=== PATIENT | male | born 1950 | race Caucasian/White ===

== ENCOUNTER 2018-01-23 19:06 | Inpatient (IN) | payer OTHER ==
[2018-01-23 20:13] VITALS: BMI 20.1
--- NOTE | 2018-01-23 23:45 | HP ---
COWS - Scale Resting Pulse: 0= ND 80 or Below Sweatin=Flushed/Facial Moisture Restless Observation: 1= Difficult to Sit Still Pupil Size: 0= Normal to Room Light Bone or Joint Aches: 2= Severe Diffuse Aches Runny Nose/ Eye Tearin= Runny Nose/Eyes GI Upset > 30mins: 2= Nausea/Diarrhea Tremor Observation: 4= Gross Tremor/Twitching Yawning Observation: 0= None Anxiety or Irritability: 2=Irritable/Anxious Goose Flesh Skin: 0=Smooth Skin COWS Score: 15 CIWA Score Nausea/Vomitin Muscle Tremors: 3 Anxiety: 3 Agitation: 3 Paroxysmal Sweats: 2 Orientation: 0-Oriented Tacttile Disturbances: 0-None Auditory Disturbances: 0-None Visual Disturbances: 0-None Headache: 4-Moderately Severe CIWA-Ar Total Score: 17 - Admission Criteria [facility] Guidelines: Admission for Medically Managed Detox: Requires at least one of the followin. CIWA greater than 12 2. Seizures within the past 24 hours 3. Delirium tremens within the past 24 hours 4. Hallucinations within the past 24 hours 5. Acute intervention needed for co occurring medical disorder 6. Acute intervention needed for co occurring psychiatric disorder 7. Severe withdrawal that cannot be handled at a lower level of care (continued vomiting, continued diarrhea, abnormal vital signs) requiring intravenous medication and/or fluids 8. Admission [facility] Chief Complaint: Alcohol withdrawal symptoms Allergies/Adverse Reactions: Allergies Allergy/AdvReac Type Severity Reaction Status Date / Time No Known Allergies Allergy Verified 01/23/18 22:24 History of Present Illness: 67 years old male with 50 years of alcohol and heroin dependence is seeking admission to detox. Patient reports insignificant period of sobriety. He reports history of anxiety and denies suicidal ideation at this time. Exam Limitations: No Limitations - Ebola screening Have you traveled outside of the country in the last 21 days: No (N) Have you had contact with anyone from an Ebola affected area: No Have you been sick,other than usual withdrawal symptoms: No Do you have a fever: No - Review of Systems Constitutional: Chills, Malaise, Night Sweats, Weakness EENT: reports: Nose Congestion, Difficulty Swallowing Respiratory: reports: No Symptoms reported Cardiac: reports: No Symptoms Reported GI: reports: Diarrhea, Poor Appetite, Poor Fluid Intake, Vomiting, Abdominal cramping : reports: No Symptoms Reported Musculoskeletal: reports: Muscle Pain, Muscle Weakness Integumentary: reports: Dryness, Flushing Neuro: reports: Headache, Tremors Endocrine: reports: No Symptoms Reported Hematology: reports: No Symptoms Reported Psychiatric: reports: No Sypmtoms Reported, Anxious Other Systems: Reviewed and Negative Patient History - Patient Medical History Hx Anemia: No Hx Asthma: No Hx Chronic Obstructive Pulmonary Disease (COPD): No Hx Cancer: No Hx Cardiac Disorders: No Hx Congestive Heart Failure: No Hx Hypertension: No Hx Hypercholesterolemia: No Hx Pacemaker: No HX Cerebrovascular Accident: No Hx Seizures: No Hx Dementia: No Hx Diabetes: No Hx Gastrointestinal Disorders: No Hx Liver Disease: No Hx Genitourinary Disorders: No Hx Sexually Transmitted Disorders: No Hx Renal Disease (ESRD): No Hx Thyroid Disease: No Hx Human Immunodeficiency Virus (HIV): No (Negative 2016) Hx Hepatitis C: No Hx Depression: No Hx Suicide Attempt: No (Denies suicidal ideation at this time) Hx Bipolar Disorder: No Hx Schizophrenia: No Other Medical History: Anxiety - Xanax - Patient Surgical History Past Surgical History: Yes Hx Orthopedic Surgery: Yes (HIP REPLACEMENT 1994) - PPD History Previous Implant?: Yes Documented Results: Negative w/o proof Implanted On Prior [facility] Admission?: No PPD to be Administered?: Yes - Reproductive History Patient is a Female of Child Bearing Age (11 -55 yrs old): No (MALE) - Smoking Cessation Smoking history: Never smoked Hx Chewing Tobacco Use: No Initiated information on smoking cessation: No - Substance & Tx. History Hx Alcohol Use: Yes Hx Substance Use: Yes Substance Use Type: Heroin, Tranquilizers Hx Substance Use Treatment: Yes - Substances Abused Alprazolam (Xanax) Route: Oral Frequency: Daily Amount used: 2 mg Age of first use: 57 Date of Last Use: 01/21/18 Heroin Route: Inhalation Frequency: Daily Amount used: 8 bags Age of first use: 17 Date of Last Use: 01/21/18 Family Disease History - Family Disease History Family History: Denies Admission Physical Exam [facility] - Vital Signs Vital Signs: Vital Signs - 24 hr 01/23/18 20:11 Temperature 97.1 F L Pulse Rate 74 Respiratory 18 Rate Blood Pressure 140/88 - Physical General Appearance: Yes: Moderate Distress, Tremorous, Irritable, Sweating, Anxious HEENTM: Yes: EOMI, Normocephalic, Normal Voice, MICHELLE Respiratory: Yes: Lungs Clear, Normal Breath Sounds, No Respiratory Distress Breast: Yes: Breast Exam Deferred Cardiology: Yes: Regular Rhythm, Regular Rate Abdominal: Yes: Normal Bowel Sounds, Soft Genitourinary: Yes: Within Normal Limits Back: Yes: Normal Inspection Musculoskeletal: Yes: Pelvis Stable Extremities: Yes: Normal Inspection 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, Alert, Normal Mood/Affect Integumentary: Yes: Warm Lymphatic: Yes: Within Normal Limits - Diagnostic (1) Anxiety Current Visit: Yes Status: Chronic (2) Opioid dependence with withdrawal Current Visit: Yes Status: Chronic (3) Sedative, hypnotic or anxiolytic dependence with withdrawal, uncomplicated Current Visit: Yes Status: Chronic Cleared for Admission [facility] - Detox or Rehab [facility] Level of Care: Medically Managed Detox Regimen/Protocol: Methadone/Valium [facility] Breath Alcohol Content Breath Alcohol Content: 0 Urine Drug Screen - Results Drug Screen Negative: No Urine Drug Screen Results: OPI-Opiates, BZO-Benzodiazepines
[2018-01-23] MEDS ORDERED: IBUPROFEN 400 MG TABLET (FP) PO PRN (23:52)
[2018-01-23] MEDS ORDERED: MAGNESIUM CITRATE 300 ML BOTTLE PO PRN (23:52)
[2018-01-23] MEDS ORDERED: MENTHOL/PHENOL 1 EACH UD MM PRN (23:52)
[2018-01-23] MEDS ORDERED: NICOTINE POLACRILEX 2 MG GUM BC PRN (23:52)
[2018-01-23] MEDS ORDERED: P-EPHED 60MG/TRIPROLIDI 2.5MG TABLET PO PRN (23:52)
[2018-01-23] MEDS ORDERED: ACETAMINOPHEN 325 MG TABLET (FP) PO PRN (23:52)
[2018-01-23] MEDS ORDERED: LOPERAMIDE HCL 2 MG CAPSULE PO PRN (23:52)
[2018-01-23] MEDS ORDERED: MAGNESIUM HYDROX 2400MG/30ML ORAL SUSPENSION 30 ML CUP PO PRN (23:52)
[2018-01-24] MEDS ORDERED: METHADONE HCL 10 MG TABLET (FOR DETOX USE ONLY) PO ONE ×3 (00:35→23:00)
[2018-01-24] MEDS ORDERED: diazePAM 5 MG TABLET PO ONE (00:35)
[2018-01-24] MEDS: diazePAM 5 MG TABLET PO SCH ×3 (05:39→22:03)
[2018-01-24] MEDS: PRENATAL VITAMINS W/ FOLIC ACID TABLET (FP) PO SCH (10:12)
[2018-01-24] MEDS: NICOTINE 14 MG/24 HOURS TOPICAL PATCH TD SCH (10:13)
[2018-01-24] MEDS: diazePAM 5 MG TABLET PO PRN (10:13)
[2018-01-24 11:11] LABS: HEMATOCRIT 40.2 % (35.4-49); HEMOGLOBIN 13.5 GM/dL (11.7-16.9); MCH 29.8 pg (25.7-33.7); MCHC 33.5 g/dl (32.0-35.9); MEAN CELL VOLUME 89.1 fl (80-96); MEAN PLT VOLUME 8.1 fl (7.5-11.1); PLATELET COUNT 206 K/MM3 (134-434); RBC 4.51 M/mm3 (4.00-5.60); RDW 15.5 % (11.9-15.9)
[2018-01-24 11:15] LABS: ALBUMIN 3.2 g/dl (3.4-5.0); ALK PHOS 58 U/L (45-117); ANION GAP 8 MMOL/L (8-16); BILIRUBIN,TOTAL 1.2 mg/dL (0.2-1); BLOOD UREA NITROGEN 12 mg/dL (7-18); CALCIUM 8.4 mg/dL (8.5-10.1); CHLORIDE 99 mmol/L (98-107); CO2 30 mmol/L (21-32); CREATININE 0.7 mg/dL (0.55-1.3); GLUCOSE,RANDOM 108 mg/dL (74-106); POTASSIUM 3.6 mmol/L (3.5-5.1); SGOT/AST 24 U/L (15-37); SGPT/ALT 25 U/L (13-61); SODIUM 138 mmol/L (136-145); TOT PROT 6.6 g/dl (6.4-8.2)
--- NOTE | 2018-01-24 13:16 | PN ---
[facility] CIWA - CIWA Score Nausea/Vomitin-Mild Nausea/No Vomiting Muscle Tremors: 4-Moderate,w/Arms Extend Anxiety: 2 Agitation: 4-Moderately Restless Paroxysmal Sweats: 1-Minimal Palms Moist Orientation: 1-Uncertain about Date Tacttile Disturbances: 0-None Auditory Disturbances: 0-None Visual Disturbances: 0-None Headache: 2-Mild CIWA-Ar Total Score: 15 [facility] COWS - Scale Resting Pulse: 0= [place] 80 or Below Sweatin= Chills/Flushing Restless Observation: 0= Sits Still Pupil Size: 0= Normal to Room Light Bone or Joint Aches: 2= Severe Diffuse Aches Runny Nose/ Eye Tearin= Nasal Congestion GI Upset > 30mins: 2= Nausea/Diarrhea Tremor Observation of Outstretched Hands: 2= Slight Tremor Visible Yawning Observation: 1= 1-2x During Session Anxiety or Irritability: 2=Irritable/Anxious Goose Flesh Skin: 0=Smooth Skin COWS Score: 11 S Progress Note (SOAP) Subjective: body ache joints pain callus on left toe tremor sweat patient wants to return to methadone program positive perspective towards aftercare Objective: 01/24/18 13:14 Vital Signs Temperature 99 F 01/24/18 09:28 Pulse Rate 84 01/24/18 09:28 Respiratory Rate 18 01/24/18 09:28 Blood Pressure 101/57 L 01/24/18 09:28 O2 Sat by Pulse Oximetry (%) Laboratory Last Values WBC 5.0 K/mm3 (4.0-10.0) 01/24/18 07:00 RBC 4.51 M/mm3 (4.00-5.60) 01/24/18 07:00 Hgb 13.5 GM/dL (11.7-16.9) 01/24/18 07:00 Hct 40.2 % (35.4-49) 01/24/18 07:00 MCV 89.1 fl (80-96) 01/24/18 07:00 MCH 29.8 pg (25.7-33.7) 01/24/18 07:00 MCHC 33.5 g/dl (32.0-35.9) 01/24/18 07:00 RDW 15.5 % (11.9-15.9) 01/24/18 07:00 Plt Count 206 K/MM3 (134-434) 01/24/18 07:00 MPV 8.1 fl (7.5-11.1) 01/24/18 07:00 Sodium 138 mmol/L (136-145) 01/24/18 07:00 Potassium 3.6 mmol/L (3.5-5.1) 01/24/18 07:00 Chloride 99 mmol/L (98-107) 01/24/18 07:00 Carbon Dioxide 30 mmol/L (21-32) 01/24/18 07:00 Anion Gap 8 MMOL/L (8-16) 01/24/18 07:00 BUN 12 mg/dL (7-18) 01/24/18 07:00 Creatinine 0.7 mg/dL (0.55-1.3) 01/24/18 07:00 Creat Clearance w eGFR > 60 (>60) 01/24/18 07:00 Random Glucose 108 mg/dL (74-106) H 01/24/18 07:00 Calcium 8.4 mg/dL (8.5-10.1) L 01/24/18 07:00 Total Bilirubin 1.2 mg/dL (0.2-1) H 01/24/18 07:00 AST 24 U/L (15-37) 01/24/18 07:00 ALT 25 U/L (13-61) 01/24/18 07:00 Alkaline Phosphatase 58 U/L (45-117) 01/24/18 07:00 Total Protein 6.6 g/dl (6.4-8.2) 01/24/18 07:00 Albumin 3.2 g/dl (3.4-5.0) L 01/24/18 07:00 RPR Titer Nonreactive (NONREACTIVE) 01/24/18 07:00 lab noted Assessment: 01/24/18 13:15 withdrawal sx Plan: continue detox
[2018-01-24] MEDS: MELATONIN 5 MG TABLETS PO PRN (22:03)
[2018-01-24] MEDS: THIAMINE HCL 100 MG TABLET (FP) PO SCH (22:03)
[2018-01-25] MEDS: diazePAM 5 MG TABLET PO PRN ×2 (02:29→09:41)
[2018-01-25] MEDS: diazePAM 5 MG TABLET PO SCH ×3 (05:09→22:08)
[2018-01-25] MEDS: PRENATAL VITAMINS W/ FOLIC ACID TABLET (FP) PO SCH (09:42)
[2018-01-25] MEDS: MAG HYDROX/AL HYDROX/SIMETH 30 ML UNIT-DOSE CUP PO PRN (09:42)
[2018-01-25] MEDS: NICOTINE 14 MG/24 HOURS TOPICAL PATCH TD SCH (09:42)
[2018-01-25] MEDS ORDERED: METHADONE HCL 10 MG TABLET (FOR DETOX USE ONLY) PO SCH (10:00)
--- NOTE | 2018-01-25 12:58 | PN ---
[facility] Progress Note (SOAP) Subjective: anxiety body aches tremor Objective: 01/25/18 13:03 Vital Signs Temperature 98.3 F 01/25/18 09:22 Pulse Rate 64 01/25/18 09:22 Respiratory Rate 18 01/25/18 09:22 Blood Pressure 94/56 L 01/25/18 09:22 O2 Sat by Pulse Oximetry (%) Laboratory Last Values WBC 5.0 K/mm3 (4.0-10.0) 01/24/18 07:00 RBC 4.51 M/mm3 (4.00-5.60) 01/24/18 07:00 Hgb 13.5 GM/dL (11.7-16.9) 01/24/18 07:00 Hct 40.2 % (35.4-49) 01/24/18 07:00 MCV 89.1 fl (80-96) 01/24/18 07:00 MCH 29.8 pg (25.7-33.7) 01/24/18 07:00 MCHC 33.5 g/dl (32.0-35.9) 01/24/18 07:00 RDW 15.5 % (11.9-15.9) 01/24/18 07:00 Plt Count 206 K/MM3 (134-434) 01/24/18 07:00 MPV 8.1 fl (7.5-11.1) 01/24/18 07:00 Sodium 138 mmol/L (136-145) 01/24/18 07:00 Potassium 3.6 mmol/L (3.5-5.1) 01/24/18 07:00 Chloride 99 mmol/L (98-107) 01/24/18 07:00 Carbon Dioxide 30 mmol/L (21-32) 01/24/18 07:00 Anion Gap 8 MMOL/L (8-16) 01/24/18 07:00 BUN 12 mg/dL (7-18) 01/24/18 07:00 Creatinine 0.7 mg/dL (0.55-1.3) 01/24/18 07:00 Creat Clearance w eGFR > 60 (>60) 01/24/18 07:00 Random Glucose 108 mg/dL (74-106) H 01/24/18 07:00 Calcium 8.4 mg/dL (8.5-10.1) L 01/24/18 07:00 Total Bilirubin 1.2 mg/dL (0.2-1) H 01/24/18 07:00 AST 24 U/L (15-37) 01/24/18 07:00 ALT 25 U/L (13-61) 01/24/18 07:00 Alkaline Phosphatase 58 U/L (45-117) 01/24/18 07:00 Total Protein 6.6 g/dl (6.4-8.2) 01/24/18 07:00 Albumin 3.2 g/dl (3.4-5.0) L 01/24/18 07:00 RPR Titer Nonreactive (NONREACTIVE) 01/24/18 07:00 lab noted Assessment: 01/25/18 13:03 withdrawal sx Plan: continue detox
[2018-01-25] MEDS: THIAMINE HCL 100 MG TABLET (FP) PO SCH (22:08)
[2018-01-25] MEDS: MELATONIN 5 MG TABLETS PO PRN (22:08)
[2018-01-26] MEDS: guaiFENesin/D-METHORPHAN HB 10 ML UNIT-DOSE CUPS PO PRN (03:31)
[2018-01-26] MEDS: diazePAM 5 MG TABLET PO PRN ×2 (03:31→07:27)
[2018-01-26] MEDS: MAG HYDROX/AL HYDROX/SIMETH 30 ML UNIT-DOSE CUP PO PRN ×2 (07:27→22:07)
[2018-01-26] MEDS: PRENATAL VITAMINS W/ FOLIC ACID TABLET (FP) PO SCH (10:21)
[2018-01-26] MEDS: METHADONE HCL 5 MG TABLET (FOR DETOX USE ONLY) PO SCH (10:22)
[2018-01-26] MEDS: NICOTINE 14 MG/24 HOURS TOPICAL PATCH TD SCH (10:22)
[2018-01-26] MEDS: diazePAM 5 MG TABLET PO SCH ×2 (10:22→22:07)
--- NOTE | 2018-01-26 13:16 | PN ---
[facility] Progress Note (SOAP) Subjective: body aches joints pain anxiety restlessness tremor anxiety sweat Objective: 01/26/18 13:11 Vital Signs Temperature 97.1 F L 01/26/18 09:59 Pulse Rate 71 01/26/18 09:59 Respiratory Rate 16 01/26/18 09:59 Blood Pressure 92/60 01/26/18 09:59 O2 Sat by Pulse Oximetry (%) Laboratory Last Values WBC 5.0 K/mm3 (4.0-10.0) 01/24/18 07:00 RBC 4.51 M/mm3 (4.00-5.60) 01/24/18 07:00 Hgb 13.5 GM/dL (11.7-16.9) 01/24/18 07:00 Hct 40.2 % (35.4-49) 01/24/18 07:00 MCV 89.1 fl (80-96) 01/24/18 07:00 MCH 29.8 pg (25.7-33.7) 01/24/18 07:00 MCHC 33.5 g/dl (32.0-35.9) 01/24/18 07:00 RDW 15.5 % (11.9-15.9) 01/24/18 07:00 Plt Count 206 K/MM3 (134-434) 01/24/18 07:00 MPV 8.1 fl (7.5-11.1) 01/24/18 07:00 Sodium 138 mmol/L (136-145) 01/24/18 07:00 Potassium 3.6 mmol/L (3.5-5.1) 01/24/18 07:00 Chloride 99 mmol/L (98-107) 01/24/18 07:00 Carbon Dioxide 30 mmol/L (21-32) 01/24/18 07:00 Anion Gap 8 MMOL/L (8-16) 01/24/18 07:00 BUN 12 mg/dL (7-18) 01/24/18 07:00 Creatinine 0.7 mg/dL (0.55-1.3) 01/24/18 07:00 Creat Clearance w eGFR > 60 (>60) 01/24/18 07:00 Random Glucose 108 mg/dL (74-106) H 01/24/18 07:00 Calcium 8.4 mg/dL (8.5-10.1) L 01/24/18 07:00 Total Bilirubin 1.2 mg/dL (0.2-1) H 01/24/18 07:00 AST 24 U/L (15-37) 01/24/18 07:00 ALT 25 U/L (13-61) 01/24/18 07:00 Alkaline Phosphatase 58 U/L (45-117) 01/24/18 07:00 Total Protein 6.6 g/dl (6.4-8.2) 01/24/18 07:00 Albumin 3.2 g/dl (3.4-5.0) L 01/24/18 07:00 RPR Titer Nonreactive (NONREACTIVE) 01/24/18 07:00 lab noted Assessment: 01/26/18 13:16 withdrawal sx Plan: continue detox
[2018-01-26] MEDS: THIAMINE HCL 100 MG TABLET (FP) PO SCH (22:07)
[2018-01-27] MEDS: METHADONE HCL 5 MG TABLET (FOR DETOX USE ONLY) PO SCH (10:15)
[2018-01-27] MEDS: diazePAM 5 MG TABLET PO SCH ×2 (10:15→22:12)
[2018-01-27] MEDS: PRENATAL VITAMINS W/ FOLIC ACID TABLET (FP) PO SCH (10:15)
[2018-01-27] MEDS: NICOTINE 14 MG/24 HOURS TOPICAL PATCH TD SCH (10:16)
--- NOTE | 2018-01-27 15:38 | CONSULT ---
[facility] Psychiatric Consult - Data Date of interview: 01/27/18 Admission source: [facility] Identifying data: First admission to [facility] for this 67 y/o male seeking detoxification treatment on for heroin and xanax dependence. Patient is , a father of one, domiciled, unemployed and supported on SSI benefits. Substance Abuse History: Confirmed by the patient in this session. Details in current [facility] report : Smoking history: Never smoked. Hx Chewing Tobacco Use: No. Initiated information on smoking cessation: No. - Substance & Tx. History. Hx Alcohol Use: Yes. Hx Substance Use: Yes. Substance Use Type: Heroin, Tranquilizers. Hx Substance Use Treatment: Yes. - Substances Abused. Alprazolam (Xanax). Route: Oral. Frequency: Daily. Amount used: 2 mg. Age of first use: 57. Date of Last Use: 01/21/18. Heroin. Route: Inhalation. Frequency: Daily. Amount used: 8 bags. Age of first use: 17. Date of Last Use: 01/21/18 Medical History: Hip replacement (1994). Psychiatric History: No reported history of psychiatric hospitalizations. Patient indicates that he used to see a psychiatrist for management of anxiety. Was medicated with xanax until three years ago (psychiatrist retired). Mr Miller resorted to buying xanax from street dealers. No formal psychiatric OPD care. Patient denies history of suicide attempts. Physical/Sexual Abuse/Trauma History: Patient denies. Additional Comment: Urine Drug Screen Results: OPI-Opiates, BZO- Benzodiazepines. Noted. Mental Status Exam - Mental Status Exam Alert and Oriented to: Time, Place, Person Cognitive Function: Good Patient Appearance: Well Groomed (tall stature, thin habitus) Mood: Angry, Nervous, Withdrawn, Anxious, Irritable Affect: Mood Congruent Patient Behavior: Cooperative (medication-seeking) Speech Pattern: Clear Voice Loudness: Normal Thought Process: Goal Oriented Thought Disorder: Not Present Hallucinations: Denies Suicidal Ideation: Denies Homicidal Ideation: Denies Insight/Judgement: Poor Sleep: Well Appetite: Good Muscle strength/Tone: Normal Gait/Station: Normal Psychiatric Findings - Problem List ([place] 1, 2,3) (1) Opioid dependence with withdrawal Current Visit: Yes Status: Acute (2) Sedative, hypnotic or anxiolytic dependence with withdrawal, uncomplicated Current Visit: Yes Status: Acute (3) Substance induced mood disorder Current Visit: Yes Status: Chronic - Initial Treatment Plan Initial Treatment Plan: Psychoeducation. Sleep hygiene. Detoxification in progress. Medication protocol is explained to patient. Paul is pressuring MD for additional doses of diazepam. Limits set. Declines to take alternate medications to alleviate anxiety (SSRI, hydroxyzine, buspirone). Observation.
[2018-01-27] MEDS: THIAMINE HCL 100 MG TABLET (FP) PO SCH (22:12)
[2018-01-27] MEDS: MELATONIN 5 MG TABLETS PO PRN (22:12)
[2018-01-28] MEDS: hydrOXYzine PAMOATE 50 MG CAPSULE (FP) PO PRN (06:26)
[2018-01-28] MEDS ORDERED: diazePAM 5 MG TABLET PO SCH (10:00)
[2018-01-28] MEDS ORDERED: METHADONE HCL 10 MG TABLET (FOR DETOX USE ONLY) PO SCH (10:00)
[2018-01-28] MEDS: PRENATAL VITAMINS W/ FOLIC ACID TABLET (FP) PO SCH (10:07)
[2018-01-28] MEDS: NICOTINE 14 MG/24 HOURS TOPICAL PATCH TD SCH (10:08)
--- NOTE | 2018-01-28 10:32 | PN ---
[facility] Progress Note (SOAP) Subjective: Headache, nausea, sweats, tremors and interrupted sleep Objective: 01/28/18 10:31 Vital Signs 01/28/18 01/28/18 01/28/18 03:30 06:11 09:36 Temperature 97.5 F L 96.7 F L Pulse Rate 58 L 56 L Respiratory 18 18 18 Rate Blood Pressure 100/55 L 99/60 Laboratory Last Values WBC 5.0 K/mm3 (4.0-10.0) 01/24/18 07:00 RBC 4.51 M/mm3 (4.00-5.60) 01/24/18 07:00 Hgb 13.5 GM/dL (11.7-16.9) 01/24/18 07:00 Hct 40.2 % (35.4-49) 01/24/18 07:00 MCV 89.1 fl (80-96) 01/24/18 07:00 MCH 29.8 pg (25.7-33.7) 01/24/18 07:00 MCHC 33.5 g/dl (32.0-35.9) 01/24/18 07:00 RDW 15.5 % (11.9-15.9) 01/24/18 07:00 Plt Count 206 K/MM3 (134-434) 01/24/18 07:00 MPV 8.1 fl (7.5-11.1) 01/24/18 07:00 Sodium 138 mmol/L (136-145) 01/24/18 07:00 Potassium 3.6 mmol/L (3.5-5.1) 01/24/18 07:00 Chloride 99 mmol/L (98-107) 01/24/18 07:00 Carbon Dioxide 30 mmol/L (21-32) 01/24/18 07:00 Anion Gap 8 MMOL/L (8-16) 01/24/18 07:00 BUN 12 mg/dL (7-18) 01/24/18 07:00 Creatinine 0.7 mg/dL (0.55-1.3) 01/24/18 07:00 Creat Clearance w eGFR > 60 (>60) 01/24/18 07:00 Random Glucose 108 mg/dL (74-106) H 01/24/18 07:00 Calcium 8.4 mg/dL (8.5-10.1) L 01/24/18 07:00 Total Bilirubin 1.2 mg/dL (0.2-1) H 01/24/18 07:00 AST 24 U/L (15-37) 01/24/18 07:00 ALT 25 U/L (13-61) 01/24/18 07:00 Alkaline Phosphatase 58 U/L (45-117) 01/24/18 07:00 Total Protein 6.6 g/dl (6.4-8.2) 01/24/18 07:00 Albumin 3.2 g/dl (3.4-5.0) L 01/24/18 07:00 RPR Titer Nonreactive (NONREACTIVE) 01/24/18 07:00 Labs noted Assessment: 01/28/18 10:31 Withdrawal sx Plan: Continue detox
[2018-01-28] MEDS: guaiFENesin/D-METHORPHAN HB 10 ML UNIT-DOSE CUPS PO PRN (22:18)
[2018-01-28] MEDS: MELATONIN 5 MG TABLETS PO PRN (22:18)
[2018-01-28] MEDS: THIAMINE HCL 100 MG TABLET (FP) PO SCH (22:18)
[2018-01-29] MEDS: hydrOXYzine PAMOATE 50 MG CAPSULE (FP) PO PRN (05:44)
[2018-01-29] MEDS ORDERED: METHADONE HCL 5 MG TABLET (FOR DETOX USE ONLY) PO SCH (06:00)
[2018-01-29 06:23] VITALS: BP 100/52; PULSE 53; TEMP 97.9
--- NOTE | 2018-01-29 09:13 | PN ---
[facility] Progress Note Note: real estate investment analyst recommend ensure tid
--- NOTE | 2018-01-29 12:59 | DS ---
[facility] Detox Discharge Summary Admission Date: 01/23/18 - History Present History: Opioid Dependence, Sedative Dependence Additional Comments: Patient completed detox successfully. Patient is A, A, Ox3, in nad, vss, ambulatory. Patient instructed to see his PCP within 1-2 weeks. Pertinent Past History: Opioid dependence Sedative dependence Anxiety - Physical Exam Results Vital Signs: Vital Signs Temperature 97.9 F 01/29/18 06:22 Pulse Rate 53 L 01/29/18 06:22 Respiratory Rate 18 01/29/18 06:22 Blood Pressure 100/52 L 01/29/18 06:22 O2 Sat by Pulse Oximetry (%) Pertinent Admission Physical Exam Findings: Withdrawal symptoms Laboratory Tests 01/24/18 01/24/18 01/24/18 07:00 07:00 07:00 WBC 5.0 RBC 4.51 Hgb 13.5 Hct 40.2 MCV 89.1 MCH 29.8 MCHC 33.5 RDW 15.5 Plt Count 206 MPV 8.1 Sodium 138 Potassium 3.6 Chloride 99 Carbon Dioxide 30 Anion Gap 8 BUN 12 Creatinine 0.7 Creat Clearance w eGFR > 60 Random Glucose 108 H Calcium 8.4 L Total Bilirubin 1.2 H AST 24 ALT 25 Alkaline Phosphatase 58 Total Protein 6.6 Albumin 3.2 L RPR Titer Nonreactive Labs reviewed - Treatment Hospital Course: Detox Protocol Followed, Detoxed Safely, Responded well, Discharged Condition Good - Medication Discharge Medications: Ambulatory Orders NK [No Known Home Medication] 01/23/18 - Diagnosis (1) Opioid dependence with withdrawal Status: Acute (2) Sedative, hypnotic or anxiolytic dependence with withdrawal, uncomplicated Status: Acute (3) Anxiety Status: Chronic - AMA Did Patient Leave Against Medical Advice: No (F/U with PCP within 1-2 weeks)
== END 2018-01-29 09:46 | disposition home or self-care (01) | DRG 897 ==
LOC: YASAS 19:06 → Y3N 22:42
PROC: HZ2ZZZZ Detoxification Services for Substance Abuse Treatment (ICD-10-PCS; principal; 2018-01-23)
DX: F11.23 Opioid dependence with withdrawal (principal); F13.230 Sedative, hypnotic or anxiolytic dependence with withdrawal, uncomplicated; F41.9 Anxiety disorder, unspecified; F19.24 Other psychoactive substance dependence with psychoactive substance-induced mood disorder
CPT/HCPCS: 36415; 80053; 85027; 86593